=== PATIENT | male | born 1965 | race Caucasian/White ===

== ENCOUNTER 2018-05-31 17:05 | Emergency (ER) | payer SELFPAY ==
[~2018-05-31] VITALS: Ht 170.2 cm; Wt 80.0 kg
[2018-05-31 17:32] VITALS: Ht 170.2 cm; Wt 80.0 kg
[2018-05-31] MEDS ORDERED: STERILE WATER 1L IRRIG BTL IRR STA (18:04)
[2018-05-31] MEDS ORDERED: LIDOCAINE 1% (MDV) 10 ML INJ INJ STA (18:04)
[2018-05-31] MEDS ORDERED: DIPHTH/TET/ACEL PERTUSS (ADULT) 0.5 ML VIAL IM* ONE (18:30)
--- NOTE | 2018-05-31 19:18 | PSY ---
Date/Time of Note Date/Time of Note DATE: 05/31/18 TIME: 20:11 Psychiatric Subjective Eval Consent Pt consented to telemedicine: Yes Subjective Evaluation Patient location: emergency Chief Complaint: wrist laceration from hitting window, no si or hi Reason for consult: SI/HI ETOH History of present illness The patient presented to the emergency room with a wrist laceration. The patient apparently put his hand through the glass. His toxicology results are not back yet. It is unclear whether the patient was under the influence of drugs or alcohol. His had stated that the patient had been drinking quite a bit. The patient denies this. It is impossible to fully interview the patient. The patient is extremely disorganized laughing appropriately, making inappropriate comments, not really answering questions but talking about something else. He is very grandiose. No boundaries whatsoever. Constantly moving on his bed. I am unable to obtain any substantial history from the patient. He denies feeling suicidal but he says that he hurts people. Past psychiatric history Unable to assess Hospitalization: no Family History Unable to access Medical history Unable to access Substance Abuse Substance use: other Social History Marital status: Level of education: Unable to access [email or web address]/[email or web address]: No Occupation/[employer]: Unable to access Psychiatric Objective Eval Review of Systems: Review of Systems: Not Applicable Physical Examination: Physical Examination: Not Applicable Mental Status Examination: Appearance: Disheveled Eye Contact: Poor Psychomotor Activity: Agitated Behavior: Bizarre Speech: Pressured AFFECT: Libile Mood: Expansive Though Process: Illogical Thought Content: Delusions Suicidal: No Homicidal: No On 72 hour hold: Yes Cognition: Alert Insight: Impared Judgement: Impared Attention Span: Distractible Laboratory Results Laboratory Tests Test 05/31/18 18:55 White Blood Count 9.1 10^3/ul Red Blood Count 5.06 10^6/ul Hemoglobin 16.6 g/dl Hematocrit 46.7 % Mean Corpuscular Volume 92.3 fl Mean Corpuscular Hemoglobin 32.8 pg Mean Corpuscular Hemoglobin Concent 35.5 g/dl Red Cell Distribution Width 11.8 % Platelet Count 251 10^3/UL Mean Platelet Volume 9.1 fl Immature Granulocytes % 0.500 % Neutrophils % 62.1 % Lymphocytes % 29.6 % Monocytes % 6.6 % Eosinophils % 0.5 % Basophils % 0.7 % Nucleated Red Blood Cells % 0.0 /100WBC Immature Granulocytes # 0.050 10^3/ul Neutrophils # 5.7 10^3/ul Lymphocytes # 2.7 10^3/ul Monocytes # 0.6 10^3/ul Eosinophils # 0.1 10^3/ul Basophils # 0.1 10^3/ul Nucleated Red Blood Cells # 0.0 10^3/ul Assessment and Plan Assessment/Diagnosis Diagnosis The differential diagnosis is bipolar disorder versus delirium secondary to the substance. Recommendation/Plan Medication Management I recommend Ativan 2 mg every six hours. Multiple antipsychotics: No Psychotherapy Not applicable Pt. Caregiver/Family Education Not applicable Discharge Disposition: Psychiatric inpatient Legal Status: Continue involuntary hold Other If the patient improves after either one, I would recommend a reevaluation. MIKE CROCKER May 31, 2018 19:18
[2018-05-31] MEDS ORDERED: LORAZEPAM 2 MG INJ IM ONE (19:30)
--- NOTE | 2018-05-31 19:33 | ERD ---
ER Documentation Chief Complaint Chief Complaint wrist laceration from hitting window, no si or hi HPI 52-year-old male with a psychiatric history presenting by ambulance with a left wrist laceration after he punched his hand through window. He states that his is cheating on him and that he is very upset. He does admit to drinking alcohol. Otherwise he is very disorganized and not answering questions appropriately. He does admit he has a psychiatric history but is unable to tell me what medications he is on. ROS Limited secondary to intoxication Allergies Allergies: Coded Allergies: No Known Allergy (Unverified , 05/31/18) PMhx/Soc Medical and Surgical Hx: pt denies Medical Hx, pt denies Surgical Hx Hx Psychiatric Problems: Yes Hx Alcohol Use: No Hx Substance Use: No Hx Tobacco Use: No Smoking Status: Never smoker FmHx Unable to obtain Physical Exam Vitals Vital Signs Date Temp Pulse Resp B/P (MAP) Pulse Ox O2 O2 Flow FiO2 Time Delivery Rate 05/31/18 98.5 88 18 135/85 98 17:32 (102) Physical Exam Const: No acute distress Head: Atraumatic Eyes: Normal Conjunctiva ENT: Normal External Ears, Nose and Mouth. Neck: Full range of motion. No meningismus. Resp: Clear to auscultation bilaterally Cardio: Regular rate and rhythm, no murmurs Abd: Soft, non tender, non distended. Normal bowel sounds Skin: No petechiae or rashes Back: No midline or flank tenderness Ext: No cyanosis, or edema Neur: Awake and alert Psych: Normal Mood and Affect Result Diagram: 05/31/18185405/31/181854 Results 24 hrs Laboratory Tests Test 05/31/18 18:55 White Blood Count 9.1 10^3/ul Red Blood Count 5.06 10^6/ul Hemoglobin 16.6 g/dl Hematocrit 46.7 % Mean Corpuscular Volume 92.3 fl Mean Corpuscular Hemoglobin 32.8 pg Mean Corpuscular Hemoglobin Concent 35.5 g/dl Red Cell Distribution Width 11.8 % Platelet Count 251 10^3/UL Mean Platelet Volume 9.1 fl Immature Granulocytes % 0.500 % Neutrophils % 62.1 % Lymphocytes % 29.6 % Monocytes % 6.6 % Eosinophils % 0.5 % Basophils % 0.7 % Nucleated Red Blood Cells % 0.0 /100WBC Immature Granulocytes # 0.050 10^3/ul Neutrophils # 5.7 10^3/ul Lymphocytes # 2.7 10^3/ul Monocytes # 0.6 10^3/ul Eosinophils # 0.1 10^3/ul Basophils # 0.1 10^3/ul Nucleated Red Blood Cells # 0.0 10^3/ul Urine Color YELLOW Urine Clarity CLEAR Urine pH 6.0 Urine Specific [place] 1.010 Urine Ketones NEGATIVE mg/dL Urine Nitrite NEGATIVE mg/dL Urine Bilirubin NEGATIVE mg/dL Urine Urobilinogen NEGATIVE mg/dL Urine Leukocyte Esterase NEGATIVE Brianne/ul Urine Hemoglobin NEGATIVE mg/dL Urine Glucose NEGATIVE mg/dL Urine Total Protein NEGATIVE mg/dl Sodium Level 143 mmol/L Potassium Level 3.8 mmol/L Chloride Level 105 mmol/L Carbon Dioxide Level 26 mmol/L Anion Gap 12 Blood Urea Nitrogen 15 mg/dl Creatinine 1.03 mg/dl Est Glomerular Filtrat Rate mL/min > 60 mL/min Glucose Level 130 mg/dl Calcium Level 9.6 mg/dl Total Bilirubin 0.5 mg/dl Direct Bilirubin 0.00 mg/dl Indirect Bilirubin 0.5 mg/dl Aspartate Amino Transf (AST/SGOT) 100 IU/L Alanine Aminotransferase (ALT/SGPT) 73 IU/L Alkaline Phosphatase 97 IU/L Total Protein 8.3 g/dl Albumin 5.0 g/dl Globulin 3.30 g/dl Albumin/Globulin Ratio 1.51 Salicylates Level < 1.0 mg/dl Urine Opiates Screen NEGATIVE Acetaminophen Level < 10.0 ug/ml Urine Barbiturates NEGATIVE Urine Amphetamines Screen NEGATIVE Urine Benzodiazepines Screen NEGATIVE Urine Cocaine Screen NEGATIVE Urine Cannabinoids NEGATIVE Ethyl Alcohol Level 261.0 mg/dl Current Medications Medications Dose Sig/Silvino Start Time Status Last (Trade) Ordered Route PRN Stop Time Admin Dose Reason Admin Diphtheria/ 0.5 ml ONCE ONCE 05/31/18 DC 05/31/18 Tetanus/Acell IM* 18:30 18:30 Pertussis 05/31/18 18:31 (Adacel) Sterile 1,000 ml ONCE STAT 05/31/18 DC 05/31/18 Water IRR 18:04 18:04 (Water 05/31/18 18:08 Sterile For Irrigation) Lidocaine 10 ml ONCE STAT 05/31/18 DC HCl INJ 18:04 (Lidocaine 05/31/18 18:08 1% (Mdv) 10 ml) Lorazepam 2 mg ONCE ONCE 05/31/18 DC 05/31/18 (Ativan) IM 19:30 19:23 05/31/18 19:31 Lidocaine 10 ml ONCE STAT 05/31/18 DC (Xylocaine INJ 19:52 1% (Mpf)) 05/31/18 19:53 Procedures/MDM EMERGENT LABS AND DIAGNOSTIC STUDIES: Lab Results above were reviewed and interpreted by me. CBC: no anemia or evidence of infection CMP: Transaminitis, likely secondary to alcohol use. No evidence of electrolyte abnormality, renal failure, hypoglycemia, liver failure, or biliary obstruction UA: no evidence of infection UDS: Negative Ethanol: Elevated consistent with intoxication Radiology Results as interpreted by Radiology below were reviewed by Becca Simon MD: X-ray left wrist: No evidence of foreign body. No acute fractures Initial Nursing notes reviewed. Previous Medical Records requested via the Electronic Health Record. EMERGENCY DEPARTMENT COURSE / MEDICAL DECISION MAKING: Laceration Repair by me: Anesthesia: 1% lidocaine locally Location: Left wrist Tendon/Joint/Nerves: No injury Foreign body: None detected after copious irrigation and exploration Technique: Simple Interrupted Sutures Complexity: No subcutaneous sutures/mucosal repair/edge excision Post Closure Length: 5 cm Patient's bleeding was easily controlled in the department and there is no indication of anemia. No evidence of compartment syndrome, neurologic injury, vascular injury, open joint, or foreign body. There is evidence of superficial tendon injury but the hand function is completely normal Patient is presenting intoxicated with disorganized speech and does not safe for discharge. I had him evaluated by the tele-psychiatrist, who agrees with my evaluation and recommends the patient be held. He may need reevaluation later when he is more sober. He recommended Ativan 2 mg IM, which was given. Patient will be observed in the ED until he is more sober to be reevaluated. Patient signed out to the oncoming ED physician, Dr. Bills Departure Diagnosis: Primary Impression: Laceration of left wrist Encounter type: initial encounter Qualified Codes: S61.512A - Laceration without foreign body of left wrist, initial encounter Additional Impressions: Behavior concern in adult Disorganized thought process Condition: Fair KATHIE SIMON MD May 31, 2018 19:33
[2018-05-31] MEDS ORDERED: LIDOCAINE 1% (MPF) 5 ML VIAL INJ STA (19:52)
--- NOTE | 2018-06-01 02:25 | EN ---
Date/Time of Note Date/Time of Note DATE: 06/01/18 TIME: 02:25 ER Progress Note Psychiatric Observation Note: Indication: Psychosis Duration: Greater than 4 hours Family history: As documented in original HPI The patient was observed with serial exams over the above timeframe. The patient continued to be well-appearing, and observation continued without complication. All other needs have been met during emergency department stay. Routine psychiatric medications ordered: Still pending psychiatric placement Hold status: Patient is still pending telemetry medicine psychiatry evaluation. He continued to be disorganized and agitated requiring sedation and only now is awake to have a conversation with the telemetry medicine psychiatrist. Placement status: Pending evaluation MYRNA WILKS Jun 01, 2018 02:25
[2018-06-01 08:28] VITALS: BP 151/90; PULSE 94; RESP 18
== END 2018-06-01 08:30 ==
LOC: E/R 17:05
DX: S61.512A Laceration without foreign body of left wrist, initial encounter (principal); F98.9 Unspecified behavioral and emotional disorders with onset usually occurring in childhood and adolescence; W26.8XXA Contact with other sharp object(s), not elsewhere classified, initial encounter; Y92.9 Unspecified place or not applicable; Z23 Encounter for immunization
CPT/HCPCS: 12002; 36415; 73110; 80053; 80307; 81003; 85025; 90471; 90715; 96372; 99285; J2060